=== PATIENT | male | born 1995 | race Caucasian/White ===

== ENCOUNTER 2024-10-16 19:01 | Emergency (ER) | payer SELFPAY ==
[2024-10-16 19:13] VITALS: BP 144/85
--- NOTE | 2024-10-16 21:12 | ED.GENMED ---
History of Present Illness
General
Chief Complaint: Head Injury
Source: patient
Exam Limitations: none
Time Seen by Provider: 10/16/24 21:12
Nursing documentation reviewed up to this point in time: agreed with
History of Present Illness
History of Present Illness:
29 yo male states he struck the back of his head as he stood from bending over in the bathroom 6 days ago at home. Has felt 'foggy' in the head since with general head pressure, mild nausea, anorexia and anxiety (states he's not typically an anxious
person).
Denies change in vision, neck pain, difficulty ambulating
Past History
Past History
ED Past Medical History: None
ED Past Surgical History: None
Social History
Tobacco: Non-smoker
Alcohol: Occasional
Personal: Single
Living: with family
Employment: Employed
Review of Systems
Review of Systems
Allergies reviewed?: Yes
All Other Systems: ROS reviewed and negative except as documented in HPI and ROS
Constitutional: Reports fatigue; Denies fever
Respiratory: Denies trouble breathing
Cardiac: Denies chest pain
ABD/GI: Reports nausea and anorexia; Denies abdominal pain or vomiting
Musculoskeletal: Reports no symptoms
Skin: Reports no symptoms
Neurological: Reports headache
Psychiatric: Reports anxiety
Phy Exam
Physical Exam
Physical Exam:
GENERAL: No acute distress. A&Ox3.
CONSTITUTIONAL: Afebrile.
EYES: PERRL, conjunctivae normal
ENMT: moist mucus membranes, Pharynx nl, TMs normal
RESPIRATORY: Regular respirations, nonlabored, lungs clear.
CARDIOVASCULAR: Regular rate and rhythm, no murmurs, no rubs.
GI: Soft, nontender
MUSCULOSKELETAL: Moves with ease. Well perfused.
SKIN: Warm, dry, pink
PSYCH: Normal mood and affect. Well kept, interactive and appropriate
NEUROLOGIC: Awake, alert and oriented. Speech clear. Cranial nerves II through XII intact. Ambulates well with normal gait. No focal neurological deficits
Course
Orders/Labs/Results
Orders:
Orders
10/16/24 19:18
CT Head W/o Iv Contrast Urgent
Comment:
Reason For Exam: head injury
Vital Signs
Initial and Last Documented VS:
Initial Vital Signs
Temp Pulse Resp BP Pulse Ox
98.3 F 94 16 144/85 97
10/16/24 19:13 10/16/24 19:13 10/16/24 19:13 10/16/24 19:13 10/16/24 19:13
Last Documented Vital Signs
Temp Pulse Resp BP Pulse Ox
98.3 F 77 18 115/80 97
10/16/24 19:13 10/16/24 21:50 10/16/24 21:50 10/16/24 21:50 10/16/24 19:13
MDM/Problems Addressed
Differential Diagnosis Includes:
concussion
MDM/Problems Addressed:
29 yo male states he struck the back of his head as he stood from bending over in the bathroom 6 days ago at home. Has felt 'foggy' in the head since with general head pressure, mild nausea, anorexia and anxiety (states he's not typically an anxious
person).
Denies change in vision, neck pain, difficulty ambulating
Head CT shows no abnormality.
Referred to [facility] for Post concussive syndrome if not improved after resting over the weekend.
Ambulated out with normal gait.
*Critical Care Note
Total Time (30-74mins, 75-104mins- exclusive of procedures): Not Applicable
ED Attending Note
-
Portions of this chart may have been created with voice recognition software.� Occasional wrong word or��sound alike� substitutions may have occurred due to the inherent limitations of voice recognition software.
Discharge Plan
Departure
Patient Disposition: Home (Routine Discharge)
Date of Disposition: 10/16/24
Time of Disposition: 21:27
Patient with high blood pressure during this ER visit?: No
Condition: Good
Discharge Problem:
Concussion
Instructions: Concussion, Adult (DC)
Referrals:
[facility], clinic for postconcussion [Other] - Next open appointment
Activity Restrictions/Additional Instructions:
As we discussed, your CAT scan is normal
Rest over the weekend
If you are no better by next week make an appointment with the [facility] clinic for postconcussion syndrome.
Interventions
Interventions:
*Risk Screen - Suicide Last Done: 10/16/24 21:50
*General Assessment Last Done: 10/16/24 21:50
*Neglect/Abuse Screening Last Done: 10/16/24 21:50
*Nursing Disposition Last Done: 10/16/24 21:52
ED- Neurological Assessment Last Done: 10/16/24 21:50
ED-Skin Assessment Last Done: 10/16/24 21:50
Discharge Date and Time
Discharge Date/Time: 10/16/24 22:17
Print Language: GREENLAND[place]
[2024-10-16 21:50] VITALS: BP 115/80
== END 2024-10-16 22:17 | disposition home or self-care (01) ==
LOC: EMR 19:01
PROVIDERS: EMERGENCY PHYSICIAN Emergency Medicine
DX: S06.0XAA Concussion with loss of consciousness status unknown, initial encounter (principal); W19.XXXA Unspecified fall, initial encounter; F41.9 Anxiety disorder, unspecified
CPT/HCPCS: 99284; 70450